=== PATIENT | male | born 1955 | race Caucasian/White ===

== ENCOUNTER 2017-07-15 06:36 | Observation (INO) | payer OTHER ==
[~2017-07-15] VITALS: Ht 177.8 cm; Wt 122.2 kg
[~2017-07-15 06:36] MED LIST: ALPR.25 PO; ASPI-516 PO; BUTA1CAP PO; DICY10CA12 PO; LEXA10TA PO; LISI10TA3 PO; PANT40TA3 PO; PERC10TA27 PO; TAMS5CAP PO
[2017-07-15] MEDS ORDERED: BUPIVACAINE/EPINEPHRINE 0.25% PF 30 ML VIAL ONE (06:39)
[2017-07-15] MEDS ORDERED: LIDOCAINE 1%/EPINEPHrine 1:100,000 SOLN 20 ML VIAL ONE (06:39)
[2017-07-15] MEDS ORDERED: BUPIVACAINE/EPINEPHRINE 0.5% PF 30 ML VIAL ONE (06:39)
[2017-07-15] MEDS ORDERED: ceFAZolin INJ 1,000 MG VIAL ONE (06:39)
[2017-07-15] MEDS ORDERED: ceFAZolin 2 GM PREMIX 50 ML IV SCH (08:00)
[2017-07-15] MEDS ORDERED: ACETAMINOPHEN 1000 MG/100 ML 100 ML IV SCH (08:00)
[2017-07-15] MEDS ORDERED: LACTATED RINGER'S 1000 ML IV PRN (08:00)
[2017-07-15] MEDS ORDERED: CHLORHEXIDINE GLUCONATE 2 % 1 PACK (2 CLOTHS) TOPICAL PRN (08:00)
[2017-07-15] MEDS ORDERED: SODIUM CHLORID 0.9% 500 ML IV PRN (08:00)
[2017-07-15] MEDS ORDERED: POVIDONE IODINE 5% (ANTISEPSIS KIT) 4 APPLICATIONS EACH NARE PRN (08:00)
[2017-07-15] MEDS ORDERED: METOPROLOL TARTRATE 25 MG TAB PO PRN (08:00)
[2017-07-15] MEDS ORDERED: ACETAMINOPHEN 1000 MG/100 ML 0 ML IV ONE (08:12)
[2017-07-15] MEDS ORDERED: BUPIVACAINE LIPOSOME PF 1.3% 20 ML VIAL ONE (08:13)
--- NOTE | 2017-07-15 10:47 | PD.OP ---
cc: Greg Lozoya MD Operative Report Date of Surgery: Jul 15, 2017 Preoperative Diagnosis: (1) Incisional hernia Postoperative Diagnosis: (1) Incisional hernia Procedure: Ventral incisional hernia repair with mesh Anesthesia: ANGELO Surgeon: Greg Lozoya Trimming Inspector(s): Jacquelyn AARON Operation and Findings: EBL: 10cc Operative findings: Approximately 3x5cm hernia in left upper abdomen. Intraabdominal adhesions. Open repair performed in two layers with onlay ultrapro advanced mesh. Procedure in detail: The patient was taken to the operating room placed in supine position and general endotracheal anesthesia was induced. The abdomen was prepped and draped in usual sterile fashion and surgical timeout was performed to verify correct patient procedure and site. Local anesthetic was injected in the skin and subcutaneous tissue in the left upper abdomen overlying the hernia defect. The hernia was secondary to a port site from previous laparoscopic converted to open cholecystectomy. Dissection was carried out through subcutaneous tissue with electrocautery and the hernia sac was encountered. The hernia sac was entered. The fascia was delineated by careful dissection circumferentially and much of the hernia sac was removed. Gently with blunt dissection and sharp dissection intra-abdominal adhesions were from the fascia intra-abdominally. The second muscle layer was encountered. Subcutaneous tissue was cleared with electrocautery circumferentially around the defect in the anterior abdominal wall. Both layers of the rectus fascia were now well delineated and closed in 2 layers with running #1 PDS suture. The anterior fascia was closed longitudinally as this had significantly less tension than if it were to be closed transversely. More fatty tissue around the closure was dissected free. An 15 x 15 cm piece of ultra Pro advanced mesh was cut to 13 x 10 cm. The mesh was placed in a longitudinal orientation with wide coverage of the incision and secured with fascial stapler circumferentially. Superiorly where the mesh was overlying the lower ribs the mesh was secured with a 2-0 Vicryl suture to avoid permanent fixation to rib periosteum. There was good hemostasis. The Mary Kay's fascia was closed with 3-0 Vicryl suture. Skin was closed with subcuticular 4-0 Monocryl and Dermabond. An abdominal binder was placed. The patient tolerated procedure well was extubated and taken to PACU in stable condition. Greg Lozoya MD Jul 15, 2017 10:47
[2017-07-15] MEDS ORDERED: Post-op Orders (for Pharmacy) XX ONE (11:00)
[2017-07-15] MEDS ORDERED: oxyCODONE/ACETAMINOPHEN 5 MG/325 MG TAB PO PRN (11:00)
[2017-07-15] MEDS ORDERED: ONDANSETRON HCL 4 MG/2 ML VIAL IV PUSH PRN (11:00)
[2017-07-15] MEDS ORDERED: diphenhydrAMINE HCL 25 MG CAP PO PRN (11:00)
[2017-07-15] MEDS ORDERED: NALOXONE HCL 0.4 MG/ML AMP IV PUSH PRN (11:00)
[2017-07-15] MEDS ORDERED: *morphine SULFATE 8 MG/ML PERIprocedure ONLY ONE (11:33)
[2017-07-15] MEDS: LACTATED RINGER'S 1000 ML INJ 1,000 ML IV SCH ×2 (11:35→20:46)
[2017-07-15] MEDS ORDERED: *HYDROmorphone PF 1 MG VIAL PERIprocedural Use ONLY ONE (11:43)
[2017-07-15] MEDS ORDERED: GLYCOPYRROLATE 1 MG/5 ML SYRINGE IV PUSH ONE (12:00)
[2017-07-15] MEDS ORDERED: NEOSTIGMINE 5 MG/5 ML SYRINGE IV PUSH ONE (12:00)
[2017-07-15] MEDS ORDERED: ONDANSETRON HCL 4 MG/2 ML VIAL IV ONE (12:00)
[2017-07-15] MEDS ORDERED: LIDOCAINE HCL 1% PF 5 ML SYRINGE OTHER ONE (12:00)
[2017-07-15] MEDS ORDERED: ROCURONIUM INJ 50 MG/5 ML SYRINGE IV PUSH ONE (12:00)
[2017-07-15] MEDS ORDERED: PROPOFOL 200 MG/20 ML AMP IV ONE (12:00)
[2017-07-15] MEDS ORDERED: MIDAZOLAM HCL 2 MG/2 ML VIAL IV ONE (12:00)
[2017-07-15] MEDS ORDERED: DO NOT ADM ANY ANTICOAGULANT DRUGS PRN (12:45)
[2017-07-15] MEDS: oxyCODONE/ACETAMINOPHEN 10 MG/325 MG TAB PO PRN ×2 (13:18→19:57)
[2017-07-15] MEDS ORDERED: ALPRAZolam 0.25 MG TAB PO PRN (13:45)
[2017-07-15] MEDS: KETOROLAC TROMETHAMINE 30 MG/ML (IVP) VIAL IV PUSH SCH ×3 (14:09→23:53)
[2017-07-15] MEDS: HYDROmorphone HCL PF 1 MG/ML VIAL IV PUSH PRN ×2 (14:13→21:29)
[2017-07-15 16:00] VITALS: BP 94/52; PULSE 77; RESP 19; TEMP 98.5; O2SAT 95
[2017-07-15] MEDS: SODIUM CHLORIDE 0.9% FLUSH 10 ML FLUSH IV FLUSH SCH (19:49)
[2017-07-15] MEDS ORDERED: ZOLPIDEM TARTRATE 5 MG TAB PO PRN (21:00)
[2017-07-15 21:20] VITALS: BP 116/61; PULSE 75; RESP 18; TEMP 97; O2SAT 94
[2017-07-16] VITALS (7 sets, daily range): BP systolic 96–124; BP diastolic 48–68; PULSE 63–76; RESP 18–19; TEMP 96.5–98.4; O2SAT 88–95
[2017-07-16] MEDS: HYDROmorphone HCL PF 1 MG/ML VIAL IV PUSH PRN ×5 (00:47→20:56)
[2017-07-16] MEDS: oxyCODONE/ACETAMINOPHEN 10 MG/325 MG TAB PO PRN ×4 (02:26→22:29)
[2017-07-16] MEDS: KETOROLAC TROMETHAMINE 30 MG/ML (IVP) VIAL IV PUSH SCH ×4 (06:03→23:48)
[2017-07-16] MEDS: ASPIRIN 81 MG CHEW TAB PO SCH (10:03)
[2017-07-16] MEDS: PANTOPRAZOLE SOD 40 MG DELAYED RELEASE TAB PO SCH (10:03)
[2017-07-16] MEDS: LISINOPRIL 10 MG TAB PO SCH (10:03)
[2017-07-16] MEDS: TAMSULOSIN HCL 0.4 MG CAP PO SCH (10:03)
[2017-07-16] MEDS: ESCITALOPRAM OXALATE 10 MG TAB PO SCH (10:03)
[2017-07-16] MEDS: SODIUM CHLORIDE 0.9% FLUSH 10 ML FLUSH IV FLUSH SCH ×2 (10:04→20:56)
--- NOTE | 2017-07-16 12:03 | HHI.PR ---
Subjective Subjective Notes He c/o severe pain off and on. He had pain with ambulation. Tolerating regular diet. Objective Vitals/I&O Vital Signs Date Time Temp Pulse Resp B/P (MAP) Pulse Ox O2 Delivery O2 Flow Rate FiO2 07/16/17 08:00 97.9 69 18 102/48 (66) 90 07/15/17 12:30 Nasal Cannula 3 Narrative Exam Sitting in chair Abd: mild distention, inc c/d/i A/P Assessment and Plan 61 yo M POD 1 s/p open VHR with mesh C/o significant pain. On toradol, percocet, and IV dilaudid. Cont regular diet. Ambulate as tolerated. Plan for d/c home tomorrow. Greg Lozoya MD Jul 16, 2017 12:03
[2017-07-16] MEDS: SODIUM CHLORIDE 0.9% FLUSH 10 ML FLUSH IV FLUSH PRN ×2 (12:22→23:48)
[2017-07-16] MEDS: LACTATED RINGER'S 1000 ML INJ 1,000 ML IV SCH ×2 (16:46→23:51)
[2017-07-17 00:23] VITALS: BP 95/53; PULSE 69; RESP 18; TEMP 96.8; O2SAT 94
[2017-07-17 01:04] VITALS: BP 137/70
[2017-07-17] MEDS: HYDROmorphone HCL PF 1 MG/ML VIAL IV PUSH PRN ×2 (01:06→05:34)
[2017-07-17] MEDS: SODIUM CHLORIDE 0.9% FLUSH 10 ML FLUSH IV FLUSH PRN ×2 (01:06→05:35)
[2017-07-17] MEDS: KETOROLAC TROMETHAMINE 30 MG/ML (IVP) VIAL IV PUSH SCH (04:30)
[2017-07-17] MEDS: oxyCODONE/ACETAMINOPHEN 10 MG/325 MG TAB PO PRN (04:30)
[2017-07-17 08:00] VITALS: BP 119/57; PULSE 65; RESP 18; TEMP 97.2; O2SAT 94
[2017-07-17] MEDS ORDERED: KETO10 PO (09:25)
[2017-07-17] MEDS ORDERED: OXYC1TAB63 PO (09:25)
[2017-07-17] MEDS: TAMSULOSIN HCL 0.4 MG CAP PO SCH (09:46)
[2017-07-17] MEDS: LISINOPRIL 10 MG TAB PO SCH (09:47)
[2017-07-17] MEDS: ESCITALOPRAM OXALATE 10 MG TAB PO SCH (09:47)
[2017-07-17] MEDS: PANTOPRAZOLE SOD 40 MG DELAYED RELEASE TAB PO SCH (09:47)
[2017-07-17] MEDS: ASPIRIN 81 MG CHEW TAB PO SCH (09:47)
[2017-07-17] MEDS: SODIUM CHLORIDE 0.9% FLUSH 10 ML FLUSH IV FLUSH SCH (09:47)
== END 2017-07-17 11:17 | disposition home or self-care (01) ==
LOC: HSDC 06:36 → HSDI 10:49 → N07B 12:49
PROVIDERS: ADMIT Surgery; ATTEND Surgery
DX: K43.2 Incisional hernia without obstruction or gangrene (principal); I25.10 Atherosclerotic heart disease of native coronary artery without angina pectoris; G47.33 Obstructive sleep apnea (adult) (pediatric); F41.9 Anxiety disorder, unspecified; E66.9 Obesity, unspecified; Z79.899 Other long term (current) drug therapy; Z79.82 Long term (current) use of aspirin
CPT/HCPCS: 00832; 49560; 49568; 94150; 96374; 96375; 96376; C1781; C9290; G0378; J0131; J0690; J1170; J1885; J2250; J2270; J2405; J2710; J3010; J7120